=== PATIENT | male | born 1980 | race Two or more races ===

== ENCOUNTER 2024-09-01 10:22 | Emergency (ER) | payer MEDICAID, SELFPAY ==
[2024-09-01 10:26] VITALS: BP 147/90; PULSE 106; RESP 20; TEMP 36.9; O2SAT 99
--- NOTE | 2024-09-01 10:28 | EDNOTE_ITS ---
<Statement entered by Yashira Rodriguez MD - 09/10/24 19:27> As co-signing physician, I was present and available for consult prn. I concur with the plan and care as documented by the midlevel provider. ED Medical Clearance RME/HPI General Chief complaint: Medical Clearance Stated complaint: MEDICAL CLEARANCE Time Seen by Provider: 09/01/24 10:29 Arrival date/time: 09/01/24 10:22 RME / HPI RME / HPI Narrative: 44 year old male presents to the ED BIB [facility] for medical clearance today. Per [facility] officer, patient was not allowing staff in half-way to take his vitals due to agitation and taking off the blood pressure cuff. While in the ED patient has no complaints. States he simply did not want his vitals taken in half-way. Review of Systems Review of Systems Systems Reviewed: All systems reviewed, normal except as documented Past Medical History Social History SMOKING STATUS: Current every day smoker ED Exam Narrative Physical exam: GENERAL APPEARANCE:? alert and oriented x 4, well-developed, well-nourished, no acute distress HEENT: normocephalic, atraumatic NECK: supple LUNGS: no respiratory distress, normal effort HEART: good peripheral perfusion ABDOMEN: non distended EXTREMITIES:? atraumatic NEUROLOGIC: awake; alert and oriented x4; cranial nerves II-XII grossly intact PSYCHIATRIC:? appropriate mood and affect SKIN: warm, dry, normal color; no rashes Course Quality Measures none Vital Signs Vital signs: Vital Signs Temperature 98.5 F 09/01/24 10:26 Pulse Rate 106 H 09/01/24 10:26 Respiratory Rate 20 09/01/24 10:26 Blood Pressure 147/90 H 09/01/24 10:26 Pulse Oximetry (%) 99 09/01/24 10:26 Oxygen Delivery Method Room Air 09/01/24 10:26 Pulse ox is 99% on room air which is adequate. Medical Clearance MDM Narrative [facility] Narrative:: Rachelle King am scribing for and in the presence of Dr. Rodriguez. Patient data External records reviewed:: None Clinical information provided by:: patient and law enforcement Social determinants that could affect healthcare access:: none (Unknown, pt refused to answer ) Patient has the following chronic illnesses:: None reported, patient refused to answer if he has any past medical history. How is presenting disease/condition affected by chronic disease/condition?: no chronic disease Evaluation data The following diagnostics were reviewed and interpreted by me:: other (specify) (No diagnostics ordered ) Lab and/or radiology exams considered but not ordered:: None Interpretation Summary: N/A Medications / Prescriptions Medications or Prescriptions considered but not ordered:: None Medication administrations:: None Consultations Consultation(s) initiated? (list below): No Diagnosis Medical Clearance Differential Diagnosis: other (Medical clearance for incarceration, wellness exam) Most likely diagnosis given after review of the tests above:: Medical clearance for incarceration Admission Indicated Admission indicated?: not indicated Admission Request Was there a request for admission?: No Disposition Plan Disposition Plan: Discharge Discharge Attestation Discharge Attestation: The patient and all family members were given an opportunity to ask questions and understood the discharge instructions. Discharge instructions specifically effects, indications for sooner follow up or return to the emergency department, and the expected course of current diagnosis. Patient condition: Stable Discharge Plan Plan Patient Disposition: Correction/Court/Law Discharge Disposition comment: Okay to book Problem List Clinical Impression: Medical clearance for incarceration Patient/Caregiver Discharge Instructions Print Language: Yoruba
[2024-09-01 10:29] VITALS: BMI 24.1
== END 2024-09-01 11:05 ==
PROVIDERS: Emergency Provider Emergency Medicine
DX: Z02.89 Encounter for other administrative examinations (principal); R45.1 Restlessness and agitation
CPT/HCPCS: 99281